=== PATIENT | female | born 1945 | race Caucasian/White ===

== ENCOUNTER 2019-11-18 20:49 | Emergency (ER) | payer MEDICARE ==
[~2019-11-18] VITALS: Ht 167.6 cm; Wt 69.0 kg
[~2019-11-18 20:49] MED LIST: ABREVA2 GM TOP; ACIDOPHILUS LA1 EACH PO; ADULT LOW DOSE81 MG; ALLOPURINOL 10100 M2 PO; ANTIBIOTIC; B12INJ IM; BENICAR40 MG PO; BIOTIN2500 MCG PO; CARAFATE 1 GM TA1 G1; CIPRO; CIPRO250 M1 PO; CLONIDINE HCL0.2 M2 PO; COLACE100 MG PO; COUMADIN; COUMADIN 2.5MG2.5 M1 PO; CRESTOR5 MG PO; CYMBALTA60 MG PO; DOXYCYCLINE 10100 M1; DULCOLAX PO; DULERA 100 MCG/13 GM; ETODOLAC500 MG PO; FOLIC ACID 1 MG1 MG GT; FUROSEMIDE 80 M80 M1 PO; IMDUR 60 MG TAB60 M1; INSULIN NOVOLOG SQ; IRON325 OR; KEFLEX500 MG PO; LANTUS SC; LANTUS SQ; LASIX 40 MG TAB40 M1 PO; MAGNESIUM400 MG PO; MORPHINE SULFAT15 M1; MULTI-VITAMIN1 EAC2 PO; MULTIVITAMINS OR; MYFORTIC360 MG PO; NORCO 10-325 T1 EACH PO; NORCO 5-325 TA1 EACH PO; NORFLEX100 MG PO; NORVASC10 MG PO; NOVOLOG100 UNIT/1 SUBQ; PACERONE 200 M200 M1 OR; PAIN & FEVER500 MG PO; PERI-COLACE TA1 EACH PO; PREDNISONE 10 M10 M1; PREDNISONE 10 M10 M1 PO; PREDNISONE 5 MG5 MG PO; PROBIOTIC1 EAC1 PO; PROGRAF1 MG PO; PROTONIX40 M2 PO; REMICADE; RENAL SOFTGEL1 MG PO; SPIRONOLACTONE50 MG PO; TOPROL XL25 MG PO; TOPROL XL50 MG PO; TRAMADOL 50 MG50 MG PO; ULTRAM 50MG TAB50 MG PO; VALIUM5 MG PO; VANTIN PO; VESICARE 5 MG TA5 MG PO; VICODIN PO; VITAMIN D1000 UNI1 PO; XANAX 0.25 MG0.25 MG PO; ZOFRAN ODT4 MG PO; ZYRTEC10 MG PO; [UNRECOGNIZED DRUG - OTHER]
[2019-11-18] MEDS ORDERED: CARVEDILOL12.5 MG PO (21:06)
[2019-11-18 21:22] LABS: MPV 10.1 fl. (7.2-11.1); NUCLEATED RBCS 0 /100WBC; RDW-CV 21.7 % (10.5-14.5)
[2019-11-18 21:23] LABS: HEMATOCRIT 36.3 % (37.0-47.0); HEMOGLOBIN 11.4 gm/dL (12.0-15.0); MCH 25.8 pg (26.0-34.0); MCHC 31.4 g/dL (28.0-37.0); PLATELET COUNT* 485 thou/uL (150-400); RBC 4.42 mil/uL (4.20-5.00); WBC 16.6 thou/uL (4.0-11.0)
[2019-11-18 21:24] LABS: CALCIUM 8.9 mg/dL (8.5-10.1); POTASSIUM 4.5 mmol/L (3.5-5.1)
[2019-11-18 21:28] LABS: URINE BILIRUBIN NEGATIVE (Negative); URINE BLOOD NEGATIVE (Negative); URINE CLARITY CLEAR; URINE COLOR YELLOW; URINE GLUCOSE-RANDOM 3+ (Negative); URINE KETONES NEGATIVE (Negative); URINE LEUKOCYTES-REFLEX NEGATIVE (Negative); URINE NITRITE-REFLEX NEGATIVE (Negative); URINE PROTEIN NEGATIVE (Negative); URINE SPECIFIC GRAVITY 1.015 (1.005-1.030); URINE UROBILINOGEN 0.2 E.U./dl (0.2-1.0)
[2019-11-18 21:34] LABS: ALBUMIN 3.2 g/dL (3.4-5.0); MAGNESIUM 1.6 mg/dL (1.8-2.4); TOTAL BILIRUBIN 1.4 mg/dL (<0.1-1.0); TOTAL PROTEIN 6.2 g/dL (6.4-8.2)
[2019-11-18 22:24] LABS: ABSOLUTE BASOPHILS 0.3 thou/uL (0.0-0.2); ABSOLUTE LYMPHOCYTES 1.2 thou/uL (0.8-5.3); ABSOLUTE MONOCYTES 0.7 thou/uL (0.0-1.2); ABSOLUTE NEUTROPHILS 13.4 thou/uL (1.6-8.1)
[2019-11-18 22:25] LABS: ANISOCYTOSIS 1+; PLATELET ESTIMATE INCREASED; POIKILOCYTOSIS 1+; TOXIC GRANULATION 2+
[2019-11-18 22:26] LABS: CLUMPED PLTS OCCASIONAL; LARGE PLATELETS FEW
[2019-11-18 23:28] VITALS: BP 140/41
== END 2019-11-18 23:28 | disposition home or self-care (01) ==
LOC: M.ERS 20:49
PROVIDERS: Emergency Medicine
DX: M25.551 Pain in right hip (principal); M53.3 Sacrococcygeal disorders, not elsewhere classified; I12.0 Hypertensive chronic kidney disease with stage 5 chronic kidney disease or end stage renal disease; E11.22 Type 2 diabetes mellitus with diabetic chronic kidney disease; N18.6 End stage renal disease; Z79.899 Other long term (current) drug therapy; Z79.4 Long term (current) use of insulin; Z94.0 Kidney transplant status; Z99.2 Dependence on renal dialysis; W18.40XA Slipping, tripping and stumbling without falling, unspecified, initial encounter; Y93.89 Activity, other specified; Y92.89 Other specified places as the place of occurrence of the external cause; Y99.9 Unspecified external cause status

== ENCOUNTER 2020-07-29 13:42 | Emergency (ER) | payer MEDICARE ==
[~2020-07-29] VITALS: Ht 160 cm; Wt 83.9 kg
[~2020-07-29 13:42] MED LIST changes: +CARVEDILOL12.5 MG PO
[2020-07-29 13:55] VITALS: BP 0/0
== END 2020-07-29 13:55 ==
LOC: M.ERS 13:42
DX: I46.9 Cardiac arrest, cause unspecified (principal); I13.10 Hypertensive heart and chronic kidney disease without heart failure, with stage 1 through stage 4 chronic kidney disease, or unspecified chronic kidney disease; E11.22 Type 2 diabetes mellitus with diabetic chronic kidney disease; N18.9 Chronic kidney disease, unspecified; Z98.51 Tubal ligation status; Z96.643 Presence of artificial hip joint, bilateral; Z90.49 Acquired absence of other specified parts of digestive tract; Z79.4 Long term (current) use of insulin